=== PATIENT | male | born 1995 | race African-American/Black ===

== ENCOUNTER 2017-08-25 06:34 | Emergency (ER) | payer OTHER ==
[2017-08-25 06:38] VITALS: BP 145/107; PULSE 102; RESP 20; TEMP 98.2; O2SAT 95
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
[2017-08-25] MEDS ORDERED: BACITRACIN ZINC 14.2 GM OINTTUBE TP ONE (06:49)
[2017-08-25] MEDS ORDERED: IBUPROFEN 800 MG TAB PO ONE ×2 (06:50)
[2017-08-25] MEDS ORDERED: OXYCODONE/APAP 5/325MG PREPACK#4 BTL TAKEHOME ONE (06:51)
== END 2017-08-25 07:43 | disposition home or self-care (01) ==
PROC: 2W24X4Z Dressing of Chest Wall using Bandage (ICD-10-PCS; principal; 2017-08-25)
PROC: 2W22X4Z Dressing of Neck using Bandage (ICD-10-PCS; principal; 2017-08-25)
DX: T22.291A Burn of second degree of multiple sites of right shoulder and upper limb, except wrist and hand, initial encounter (principal); T21.21XA Burn of second degree of chest wall, initial encounter; T31.0 Burns involving less than 10% of body surface; X11.8XXA Contact with other hot tap-water, initial encounter; Y92.149 Unspecified place in prison as the place of occurrence of the external cause; Y99.0 Civilian activity done for income or pay